=== PATIENT | female | born 1995 | race Caucasian/White ===

== ENCOUNTER → 2016-12-06 | Outpatient (CLI) | payer OTHER ==
--- NOTE | 2016-12-06 16:30 | REP ---
Clinical: Pain and cramping. Dating and viability. Technique: The transabdominal and transvaginal first trimester obstetrical ultrasound with color Doppler evaluation. Findings: Single live early intrauterine is appreciated. Gestational sac with yolk sac and pole identified. Brillion-rump length of 4 mm corresponds to 6 weeks 0 days gestational age with estimated date of delivery 08/01/2017 . heart rate equals 111 beats per minute. No gross abnormalities are identified. Impression: Single live early intrauterine at 6 weeks 0 days gestational age. Complete anatomical assessment should be performed and 19-20 weeks. Signed by Felipe Luz MD 12/06/2016 04:21 P
== END ==
LOC: M RAD 15:28
PROVIDERS: ATTEND Nurse Practitioner Women's Health
DX: O20.0 Threatened abortion (principal)

== ENCOUNTER 2017-02-20 15:43 | Emergency (ER) | payer OTHER ==
[~2017-02-20] VITALS: Ht 157.5 cm; Wt 65.0 kg
[2017-02-20] MEDS ORDERED: ZOFR20TA PO (15:58)
[2017-02-20] MEDS ORDERED: PROZ20CA11 PO (15:58)
[2017-02-20] MEDS ORDERED: PROMETHAZINE INJ 25 MG/ML VIAL (J2550) IV ONE (16:30)
[2017-02-20] MEDS ORDERED: NS 1,000 ML IV ONE (16:30)
[2017-02-20 16:52] LABS: BASO % 0.3 % (0.0-1.0); EOS # 0.4 K/mm3 (0.0-0.50); EOS % 3.8 % (0.0-3.0); LARGE UNSTAINED CELL # 0.1 K/mm3 (0.0-0.4); LARGE UNSTAINED CELL % 1.2 % (0.0-4.0); LYMPH # 1.5 K/mm3 (1.5-6.5); LYMPH % 15.2 % (24.0-44.0); MEAN CORPUSCULAR HEMOGLOBIN 32.1 pg (27.0-33.0); MEAN CORPUSCULAR HGB CONC 33.6 g/dl (32.0-36.5); MEAN CORPUSCULAR VOLUME 95.5 fl (80.0-96.0); MONO # 0.6 K/mm3 (0.0-0.8); MONO % 6.4 % (0.0-5.0); NEUTROPHILS # 7.1 K/mm3 (1.8-7.7); NEUTROPHILS % 73.1 % (36.0-66.0); PLATELET COUNT, AUTOMATED 287 k/mm3 (150-450); RED CELL DISTRIBUTION WIDTH 13.3 % (11.5-14.5); WHITE BLOOD COUNT 9.7 K/mm3 (4.0-10.0)
[2017-02-20 17:12] LABS: ALBUMIN 2.9 GM/DL (3.2-5.2); ALBUMIN/GLOBULIN RATIO 0.97 (1.00-1.93); ALKALINE PHOSPHATASE 49 U/L (45-117); ALT/SGPT 19 U/L (12-78); ANION GAP 6 MEQ/L (8-16); AST/SGOT 16 U/L (15-37); BILIRUBIN,DIRECT < 0.1 MG/DL (0.0-0.2); BILIRUBIN,TOTAL 0.2 MG/DL (0.2-1.0); BLOOD UREA NITROGEN 11 MG/DL (7-18); CALCIUM LEVEL 8.6 MG/DL (8.5-10.1); CARBON DIOXIDE LEVEL 27 MEQ/L (21-32); CHLORIDE LEVEL 107 MEQ/L (98-107); CREATININE FOR GFR 0.59 MG/DL (0.55-1.02); GLOMERULAR FILTRATION RATE > 60.0 (>60); GLUCOSE, FASTING 82 MG/DL (70-105); POTASSIUM SERUM 3.9 MEQ/L (3.5-5.1); SODIUM LEVEL 140 MEQ/L (136-145); TOTAL PROTEIN 5.9 GM/DL (6.4-8.2)
[2017-02-20] MEDS ORDERED: PROM25TA PO (17:35)
[2017-02-20 17:51] VITALS: BP 113/71
== END 2017-02-20 17:52 | disposition home or self-care (01) ==
LOC: M ED 16:56
DX: O21.0 Mild hyperemesis gravidarum (principal); Z3A.18 18 weeks gestation of pregnancy; O99.342 Other mental disorders complicating pregnancy, second trimester; F33.9 Major depressive disorder, recurrent, unspecified; Z79.899 Other long term (current) drug therapy; Z88.0 Allergy status to penicillin; Z88.5 Allergy status to narcotic agent

== ENCOUNTER → 2017-03-01 | Outpatient (CLI) | payer OTHER ==
[~2017-03-01] MED LIST: PROM25TA PO; PROZ20CA11 PO; ZOFR20TA PO
--- NOTE | 2017-03-02 04:29 | REP ---
Clinical: Anatomical evaluation. Comparison: None . Findings: Examination demonstrates a single live intrauterine in cephalic presentation. motion is identified by technologist. Placenta is noted anteriorly and grade zero without evidence for placenta previa or abruption. Amniotic fluid volume is normal. Cervix measures 4.5 cm in length and appears closed. Nuchal cord noted. Gestational age by LMP 18 weeks 2 days with BALBIR 07/31/2017 . Gestational age by current measurements 18 weeks 5 days with BALBIR 07/28/2017 . FHR equals 171 beats per minute. BPD 4.3 cm 19 weeks 0 days HC 15.7 cm 18 weeks 4 days AC 13.0 cm 18 weeks 4 days FL 3.0 cm 19 weeks 3 days HL 2.8 cm 19 weeks 1 day HC/AC ratio 1.20 Estimated weight 264 grams ( 71st percentile). Anatomical assessment demonstrates normal structures including cranium, choroid plexus, cavum, cerebellum/posterior fossa, facial features, lungs, four-chamber heart, diaphragm, stomach, cord insertion/three-vessel cord, kidneys/bladder, spine, and extremities. Impression: Single live intrauterine in cephalic presentation demonstrating appropriate interval growth. Anatomical assessment is complete and normal. Nuchal cord noted. Signed by Felipe Luz MD 03/02/2017 04:21 A
== END ==
LOC: M RAD 10:48
PROVIDERS: ATTEND Nurse Practitioner Women's Health
DX: Z36 Encounter for antenatal screening of mother (principal); Z3A.18 18 weeks gestation of pregnancy

== ENCOUNTER 2017-05-09 19:08 | Outpatient (CLI) | payer OTHER ==
[2017-05-09] MEDS ORDERED: metroNIDAZOLE (FLAGYL) 500 MG TAB PO ONE (20:30)
== END 2017-05-09 21:03 | disposition home or self-care (01) ==
LOC: M LDO 19:08
PROVIDERS: ATTEND Advanced Practice Midwife
DX: O23.593 Infection of other part of genital tract in pregnancy, third trimester (principal); Z3A.29 29 weeks gestation of pregnancy

== ENCOUNTER 2017-06-15 21:07 | Outpatient (CLI) | payer OTHER ==
[~2017-06-15] VITALS: Ht 157.5 cm; Wt 75.0 kg
[2017-06-15 21:16] VITALS: BP 122/59
[2017-06-15] MEDS ORDERED: LACTATED RINGER'S 1000 ML IV STA (21:40)
[2017-06-15] MEDS ORDERED: LR 1,000 ML IV SCH (21:40)
[2017-06-15] MEDS ORDERED: ACETAMINOPHEN 500 MG TAB PO PRN (22:45)
[2017-06-15] MEDS ORDERED: TERBUTALINE SULFATE 1 MG/ML VIAL (J3105) SC ONE (23:45)
[2017-06-15] MEDS: BETAMETHASONE SOLUSPAN 6MG/ML INJ 5ML (J0702) IM SCH (23:59)
[2017-06-16 01:34] VITALS: BP 131/65
[2017-06-16] MEDS ORDERED: PROMETHAZINE INJ 25 MG/ML VIAL (J2550) IV ONE (05:30)
[2017-06-16] MEDS ORDERED: BUTORPHANOL 2 MG/ML INJ (J0595) IV ONE (05:30)
[2017-06-16 05:59] VITALS: BP 128/66
[2017-06-16 07:57] VITALS: BP 113/54
--- NOTE | 2017-06-16 10:51 | HPE ---
DATE OF ADMISSION: 06/15/2017 HISTORY: A 22-year-old 4, para 1-0-2-1 female at 33 and 4/7 weeks gestation by last menstrual period (LMP), consistent with 10-week ultrasound, estimated date of confinement (EDC) 07/31/2017, presents with regular contractions every three minutes for the last several hours. She was sent to [facility] by her provider, Skye Medina. She had a small amount of vaginal bleeding. There is good movement. She denies recent intercourse. OBSTETRICAL HISTORY: 1. 04/2012: Vaginal delivery 6 pound 9 ounce female infant, no complications. 2. 02/2013: Spontaneous . 3. 12/2014: Spontaneous . MEDICAL HISTORY: 1. Depression. 2. Gastroesophageal reflux disease (GERD). SURGICAL HISTORY: 1. Tonsillectomy in 03/2013. 2. Cholecystectomy 04/2012. 3. Excision of lipoma 09/2011. MEDICATIONS: - omeprazole 40 mg daily - fluoxetine 20 mg daily ALLERGIES: 1. AMOXICILLIN. 2. MORPHINE. SOCIAL HISTORY: The patient is . The patient denies cigarettes, alcohol or drug use. FAMILY HISTORY: Noncontributory. PHYSICAL EXAMINATION: VITAL SIGNS: Blood pressure 124/74, pulse 84, afebrile. GENERAL: She appears uncomfortable. HEAD/NECK: Normal. LUNGS: Clear to auscultation. HEART: Regular rate and rhythm. ABDOMEN: Nontender and gravid. heart tones are category one. Contractions every 2-3 minutes. Palpate mild to moderate. STERILE VAGINAL EXAM: 1 cm, 50% effaced, -2 station. Scant amount of bloody show. EXTREMITIES: Nontender. LABORATORY DATA: Blood type O negative. Rubella immune. RPR nonreactive. Hepatitis B negative. ASSESSMENT: A 22-year-old 4 para 1 female at 33 and 47 weeks gestation with contractions, possible labor. The patient was admitted on 06/15/2017. We will observe initially. Consider betamethasone if she makes cervical change to help with lung maturity. Consider temporary tocolysis, terbutaline or nifedipine, in order to gain steroid effect.
[2017-06-16] MEDS: BETAMETHASONE SOLUSPAN 6MG/ML INJ 5ML (J0702) IM SCH (11:46)
[2017-06-16 11:54] VITALS: BP 109/58
[2017-06-17] MEDS ORDERED: PRENTAB9 PO (17:48)
== END 2017-06-16 14:10 | disposition home or self-care (01) ==
LOC: M LDO 21:07
PROVIDERS: ATTEND Specialist
DX: O62.0 Primary inadequate contractions (principal); Z3A.33 33 weeks gestation of pregnancy; O09.293 Supervision of pregnancy with other poor reproductive or obstetric history, third trimester; O99.343 Other mental disorders complicating pregnancy, third trimester; F33.9 Major depressive disorder, recurrent, unspecified; O99.613 Diseases of the digestive system complicating pregnancy, third trimester; K21.9 Gastro-esophageal reflux disease without esophagitis; Z79.899 Other long term (current) drug therapy; Z88.0 Allergy status to penicillin; Z88.5 Allergy status to narcotic agent
CPT/HCPCS: 59025; 96372; 96374; 96375; J0595; J0702; J3105

== ENCOUNTER 2017-06-17 17:34 | Outpatient (CLI) | payer OTHER ==
[~2017-06-17] VITALS: Ht 157.5 cm; Wt 76.0 kg
[2017-06-17] MEDS ORDERED: PRENTAB9 PO (17:48)
[2017-06-17 17:50] VITALS: BP 116/71
[2017-06-17 18:22] VITALS: BP 114/68
[2017-06-17] MEDS ORDERED: LACTATED RINGER'S 1000 ML IV ONE (19:00)
[2017-06-17] MEDS ORDERED: LR 1,000 ML IV SCH (19:00)
[2017-06-17 19:11] VITALS: BP 113/59
[2017-06-17] MEDS ORDERED: FLUCONAZOLE 50MG TABLET PO ONE (19:30)
[2017-06-17] MEDS ORDERED: PROMETHAZINE INJ 25 MG/ML VIAL (J2550) IV ONE (21:00)
[2017-06-17] MEDS ORDERED: BUTORPHANOL 2 MG/ML INJ (J0595) IV ONE (21:00)
[2017-06-17 21:49] LABS: BASO % 0.2 % (0.0-1.0); EOS % 0.3 % (0.0-3.0); LARGE UNSTAINED CELL # 0.2 K/mm3 (0.0-0.4); LARGE UNSTAINED CELL % 1.4 % (0.0-4.0); LYMPH % 12.2 % (24.0-44.0); MEAN CORPUSCULAR HEMOGLOBIN 29.1 pg (27.0-33.0); MEAN CORPUSCULAR HGB CONC 32.8 g/dl (32.0-36.5); MEAN CORPUSCULAR VOLUME 88.7 fl (80.0-96.0); MONO # 1.4 K/mm3 (0.0-0.8); MONO % 9.7 % (0.0-5.0); NEUTROPHILS # 10.9 K/mm3 (1.8-7.7); NEUTROPHILS % 76.3 % (36.0-66.0); PLATELET COUNT, AUTOMATED 267 k/mm3 (150-450); RED CELL DISTRIBUTION WIDTH 13.8 % (11.5-14.5); WHITE BLOOD COUNT 14.3 K/mm3 (4.0-10.0)
--- NOTE | 2017-06-17 23:37 | IPNPDOC ---
Text Note Date of Service The patient was seen on 06/17/17. NOTE Subjective: Patient is a 18-year-old female who is a at 33 weeks 5 days with an BALBIR of 07/31/2017 based off of her LMP and consistent with first second trimester ultrasound. Patient initiated care in her first trimester with Skye Medina. Her has been complicated by depression and labor contractions. Patient is taking Prozac for her depression. She is betamethasone complete as of 06/16/2017. She presents to labor and delivery with complaints of contractions that are every 2-3 minutes. She reports the contractions started at the scene 100 and over the next 2 hours progressed to a more painful and more frequent. She reports active movement. Denies leaking of fluid or vaginal bleeding. She does report having more discharge but denies vaginal irritation or vaginal itching. Obstetrical history: 05/03/2012: of a live female at 39 weeks weighing 6 lbs. 9 oz.; 02/27/2013 SAB at 7 weeks; 12/21/2014 SAB at 5 weeks gestation. Medical history: Anxiety, depression, GERD Surgical history: Tonsillectomy 2012, removal lipoma in 2010, cholecystectomy 2011 Social history: Patient denies the use of alcohol, tobacco, or illicit drug use. She denies being a smoker. Denies any STI's. Patient is and with . Family history: Noncontributory Objective: Vital signs stable. The pressure 108/55. Heart rate 82. heart rate 130, moderate variability positive accelerations, no decelerations. Contractions every 1-8 minutes. Uterine irritability noted. Palpation of contractions as very mild. SVE: 1/50/-1, anterior, no show, vertex presentation. GBS is negative. No change from previous exam on the in June 16. Assessment: IUP at 33 weeks 5 days gestation; category 1 heart rate tracing; contractions-not in active labor Plan: IV started with an IV bolus then at 1 25 mL/h. CBC done. Patient treated with Diflucan due to vaginal discharge that was consistent with candidiasis. Given Stadol and Phenergan for pain management. Patient reports that her contractions are tolerable at this point desires to be discharged from the hospital. Her exam after more than 2 hours of contractions wasn't changed and is still unchanged from 2 days ago. Saline lock to removed and patient to be discharged home with . Education done at time and symptoms of labor, access to care, kick counts, and danger signs to report. Patient is to call with her routine OB appointment with Skye Medina. Dr. Milton aware of patient department and plan of care and agrees with discharge. VS,Fishbone, I+O VS, Fishbone, I+O Laboratory Tests 06/17/17 19:24 Red Blood Count 3.24 L, Mean Corpuscular Volume 88.7, Mean Corpuscular Hemoglobin 29.1, Mean Corpuscular Hemoglobin Concent 32.8, Red Cell Distribution Width 13.8, Neutrophils (%) (Auto) 76.3 H, Lymphocytes (%) (Auto) 12.2 L, Monocytes (%) (Auto) 9.7 H, Eosinophils (%) (Auto) 0.3, Basophils (%) ( Auto) 0.2, Neutrophils # (Auto) 10.9 H, Lymphocytes # (Auto) 2.0, Monocytes # ( Auto) 1.4 H, Eosinophils # (Auto) 0.0, Basophils # (Auto) 0.0 Vital Signs Date Time Temp Pulse Resp B/P (MAP) Pulse Ox O2 Delivery O2 Flow Rate FiO2 06/17/17 21:10 18 Room Air 06/17/17 19:11 98.7 89 113/59 (77) NERY BLOCK CNM Jun 17, 2017 23:37
== END 2017-06-17 23:25 | disposition home or self-care (01) ==
LOC: M LDO 17:34
PROVIDERS: ATTEND Advanced Practice Midwife
DX: O62.0 Primary inadequate contractions (principal); O99.343 Other mental disorders complicating pregnancy, third trimester; F33.9 Major depressive disorder, recurrent, unspecified; F41.9 Anxiety disorder, unspecified; O99.613 Diseases of the digestive system complicating pregnancy, third trimester; K21.9 Gastro-esophageal reflux disease without esophagitis; Z3A.33 33 weeks gestation of pregnancy; O09.293 Supervision of pregnancy with other poor reproductive or obstetric history, third trimester
CPT/HCPCS: 59025; 85025; 96374; 96375; J0595

== ENCOUNTER 2017-07-21 03:19 | Inpatient (IN) | payer OTHER ==
[2017-07-21] VITALS (9 sets, daily range): BP systolic 113–146; BP diastolic 64–79
[~2017-07-21] VITALS: Ht 157.5 cm; Wt 84.4 kg
[~2017-07-21 03:19] MED LIST changes: +PRENTAB9 PO
[2017-07-21] MEDS ORDERED: LACTATED RINGER'S 1000 ML IV STA (05:05)
[2017-07-21 05:31] LABS: MEAN CORPUSCULAR HEMOGLOBIN 26.1 pg (27.0-33.0); MEAN CORPUSCULAR HGB CONC 31.3 g/dl (32.0-36.5); MEAN CORPUSCULAR VOLUME 83.6 fl (80.0-96.0); RED CELL DISTRIBUTION WIDTH 15.4 % (11.5-14.5); WHITE BLOOD COUNT 20.4 10^3/uL (4.0-10.0)
[2017-07-21] MEDS ORDERED: COLA100C5 PO (05:44)
[2017-07-21] MEDS ORDERED: ACET650T3 PO (05:44)
[2017-07-21] MEDS ORDERED: OMEP10CASR PO (05:44)
[2017-07-21] MEDS ORDERED: TUMS500C PO (05:44)
--- NOTE | 2017-07-21 05:54 | HPE ---
DATE OF ADMISSION: 07/21/2017 HISTORY OF PRESENT ILLNESS: Valerie is a 4, para 1-0-2-1 at 38-4/7 weeks gestation with an estimated date of confinement (EDC) of 07/31/2017, based on last period and confirmed by first trimester ultrasound. She presents to labor and delivery today with report of onset of uncomfortable contractions that started around 2300 and have progressively gotten closer and much more uncomfortable overnight. She reports some bloody show. Denies leakage of fluid. The fetus has been active. care initiated at [facility] as a late transfer in at 37+ weeks gestation. Did seek first trimester care with Skye Medina in [place], [place]. Her course has been complicated by frequent evaluation of complaints of labor and found to be in false labor multiple times. OBSTETRICAL HISTORY: April 2012, at 39 weeks gestation, she had spontaneous vaginal delivery for a live female weighing 6 pounds 9 ounces. Three Spontaneous miscarriages. OBSTETRICAL LABORATORIES: Her blood type O negative, antibody screen negative. Pap was normal. Rubella immune, VDRL nonreactive. Hepatitis B surface antigen negative, HIV negative. Gonorrhea and chlamydia negative. Hepatitis C antibody nonreactive. She did not have genetic serum screening labs performed. Her gestational diabetic screening is normal at 101, and her GBS is negative. PAST MEDICAL HISTORY: Negative. SURGERIES: 1. Tonsillectomy. 2. Cholecystectomy. 3. Lipoma removal. FAMILY HISTORY: Diabetes, heart disease and hypertension. SOCIAL HISTORY: The patient is . Her is at bedside and supportive. She reports being a nonsmoker. Denies alcohol or drug use. Denies history of sexually transmitted infections, and denies history of abuse physical, sexual and emotional. ALLERGIES: AMOXICILLIN, MORPHINE. CURRENT MEDICATIONS: Include Nexium, vitamin and Prozac. OBJECTIVE: Temperature 97.9, pulse 101, blood pressure is 118/64. She is tense and crying and writhing in the bed with her contractions. They do palpate moderate. heart rate is 155 with moderate variability. There are no 15 x15 accelarations; there are no decelerations. Contractions every 2-3 minutes. Sterile vaginal exam an hour and half after arrival: She changed from two to 4 cm dilated, 100% effaced, and minus three station. Abdomen is gravid, cephalic presentation. Estimated weight 7 pounds. ASSESSMENT: Intrauterine at 38-4/7 weeks gestation. heart rate category one, active labor. PLAN: Admit the patient to labor and delivery. Labs as ordered. Intravenous (IV) fluid bolus as the patient has requested an epidural for her labor coping. Clear liquid diet. I do anticipate continued labor progress. Will consider artificial rupture of membranes (AOM) once she is comfortable with her epidural and anticipate a normal spontaneous vaginal delivery.
[2017-07-21] MEDS ORDERED: fentaNYL 100 MCG/2 ML INJECTION (J3010) As Ordered ONE (05:58)
[2017-07-21] MEDS ORDERED: FENTANYL 2MCG/ML ROPIVACAINE 0.2% IN 0.9% NACL 200ML IVBAG As Ordered ONE (06:01)
[2017-07-21] MEDS ORDERED: OXYTOCIN 30 UNITS IN 0.9% NaCl 500ML IV BAG (J2590) As Ordered ONE (08:05)
[2017-07-21] MEDS ORDERED: OXYTOCIN DRIP 30 UNITS in APPROPRIATE DILUENT 1 EA IV SCH ×2 (08:15→08:55)
[2017-07-21 08:46] LABS: CORD GAS ABE V -4.4; CORD GAS HCO3 V 24.3 MEQ/L; CORD GAS O2 SAT V 23.9 %; CORD GAS PCO2 V 59.7 mmHg; CORD GAS PH V 7.228 UNITS; CORD GAS PO2 V 15.2 mmHg; CORD GAS SBC V 19.2 MEQ/L; CORD GAS TCO2 V 26.2 MEQ/L
[2017-07-21 08:47] LABS: CORD GAS ABE A -5.4; CORD GAS HCO3 A 26.4 MEQ/L; CORD GAS O2 SAT A < 15.0 %; CORD GAS PCO2 A 84.9 mmHg; CORD GAS PO2 A < 10.0 mmHg
[2017-07-21] MEDS ORDERED: RHOGAM 300 MCG (1500 IU) INJ (J2790) IM SCH (09:00)
[2017-07-21] MEDS ORDERED: MEASLES,MUMPS,RUBELLA VACCINE INJ (MMR-II) (90707) SC SCH (09:00)
[2017-07-21] MEDS ORDERED: DIBUCAINE 1% OINTMENT 30GM TOP PRN (09:00)
[2017-07-21] MEDS: PRENATAL VITAMINS CHEWABLE TABLET PO SCH (09:00)
[2017-07-21] MEDS ORDERED: DOCUSATE SODIUM 100 MG CAP PO PRN (09:00)
[2017-07-21] MEDS ORDERED: ANUSOL HC CREAM 30GM TOP PRN (09:00)
[2017-07-21] MEDS ORDERED: METHYLERGONOVINE MALEATE 0.2 MG TAB PO PRN (09:00)
--- NOTE | 2017-07-21 09:23 | DN ---
DATE: 07/21/2017 Valerie is a 4, para 2-0-2-2 now, who is admitted to labor and delivery in active labor. She did utilize an epidural for labor coping. She had spontaneous rupture of membranes for clear odorless fluid at 0644 hours. She did have her labor augmented with a very small amount of intravenous (IV) Pitocin. She progressed to full dilation at 0824 hours. She pushed to a normal spontaneous vaginal delivery of a live male in occiput anterior (OA) position with restitution to occiput transverse (ROT) position at 0831 hours. There was a nuchal cord times four that was reduced manually at the time of delivery. The shoulders delivered with gentle downward traction and the corpus immediately followed. The was placed on maternal abdomen. The cord was clamped times two and cut by the father of the baby. Immediately the baby was taken to the warmer for resuscitation and evaluation by nursing staff. Spontaneous expulsion of an intact placenta with three-vessel cord by Pruett mechanism was 0837 hours. Uterine hemostasis achieved with IV Pitocin rapid infusion and uterine fundal massage. Estimated blood loss 350 mL. Perineum and vagina inspected, noted have bilateral small labial abrasions, hemostatic. No need for any repair. Neonatology was called to the labor room for evaluation and decision was made to transfer the to intensive care. Cord blood and cord gases were obtained. Arterial cord gas 7.110, base excess of -5.4. Venous cord pH 7.228 with a base excess of -4.4. male, at one minute were 4, five minutes of 5. 10 minute is still pending as is in the intensive care unit (NICU). Family have decided to name their son, Ubaldo Ferris and the mom does plan to breastfeed. At this time, the weight is pending. At the close of delivery, lap counts, needle counts and instrument counts were correct and verified.
[2017-07-21] MEDS: IBUPROFEN 800 MG TAB PO PRN ×2 (10:45→20:53)
[2017-07-21] MEDS: ACETAMINOPHEN 500 MG TAB PO PRN (13:12)
[2017-07-22] MEDS: ACETAMINOPHEN 500 MG TAB PO PRN ×3 (01:28→20:29)
[2017-07-22] MEDS: IBUPROFEN 800 MG TAB PO PRN ×3 (05:52→22:21)
[2017-07-22 06:10] VITALS: BP 125/68
--- NOTE | 2017-07-22 07:18 | IPNPDOC ---
Date Seen The patient was seen on 07/22/17. Progress Note PP#1 Feels well. Pumping. Adequate pain management. Voiding VSS Breasts soft, nipples intact Fundus firm, NT, down 1 FB Lochia rubra scant without odor Perineum intact A: PP #1, in NICU P: Routine care. Enc pumping to establish milk supply. Consider discharge to rooming in tomorrow. VS, I&O, 24H, Fishbone Vital Signs/I&O Vital Signs Date Time Temp Pulse Resp B/P (MAP) Pulse Ox O2 Delivery O2 Flow Rate FiO2 07/22/17 06:10 97.9 80 18 125/68 (87) 07/21/17 22:00 98 Room Air Laboratory Data 24H LABS Laboratory Tests 2 07/21/17 08:40: Cord Arterial Blood pH 7.110, Cord Arterial Blood PCO2 84.9, Cord Arterial Blood PO2 < 10.0, Cord Arterial Blood HCO3 26.4, Cord Arterial Blood Total CO2 29.0, Cord Arterial Blood Base Excess -5.4, Cord Arterial Base Excess (Standard , Cord Arterial Bld Oxygen Saturation < 15.0, Cord Venous Blood pH 7.228, Cord Venous Blood PCO2 59.7, Cord Venous Blood PO2 15.2, Cord Venous Blood HCO3 24.3 , Cord Venous Blood Total CO2 26.2, Cord Venous Base Excess (Actual) -4.4, Cord Venous Base Excess (Standard) 19.2, Cord Venous Blood Oxygen Saturation 23.9 Prema Blum CNM Jul 22, 2017 07:18
[2017-07-22 08:00] VITALS: BP 110/54
[2017-07-22] MEDS: PRENATAL VITAMINS CHEWABLE TABLET PO SCH (09:36)
[2017-07-22 18:00] VITALS: BP 117/60
[2017-07-23] MEDS: IBUPROFEN 800 MG TAB PO PRN (05:37)
[2017-07-23 05:59] VITALS: BP 131/78
[2017-07-23] MEDS: PRENATAL VITAMINS CHEWABLE TABLET PO SCH (10:40)
[2017-07-23] MEDS: ACETAMINOPHEN 500 MG TAB PO PRN (11:57)
[2017-07-23] MEDS ORDERED: IBUP-1114 PO (12:08)
[2017-07-23] MEDS ORDERED: ACET50TA PO (12:08)
[2017-07-23] MEDS ORDERED: PRENTAB9 PO (12:08)
== END 2017-07-23 17:00 | disposition home or self-care (01) | DRG 775 ==
LOC: M LDO 03:19 → M LDI 05:02 → M OBS 12:43
PROVIDERS: ADMIT Advanced Practice Midwife; ATTEND Advanced Practice Midwife
PROC: 10E0XZZ Delivery of Products of Conception, External Approach (ICD-10-PCS; principal; 2017-07-21)
DX: O69.82X0 Labor and delivery complicated by other cord entanglement, without compression, not applicable or unspecified (principal); Z37.0 Single live birth; Z3A.38 38 weeks gestation of pregnancy; Z90.49 Acquired absence of other specified parts of digestive tract; Z88.5 Allergy status to narcotic agent; Z88.1 Allergy status to other antibiotic agents; Z79.899 Other long term (current) drug therapy

== ENCOUNTER 2017-11-24 09:00 | Emergency (ER) | payer OTHER | END 2017-11-24 10:33 | disposition home or self-care (01) | LOC: M ED 09:00 | DX: L50.0 Allergic urticaria (principal); F33.9 Major depressive disorder, recurrent, unspecified; Z79.899 Other long term (current) drug therapy; Z88.1 Allergy status to other antibiotic agents; Z88.5 Allergy status to narcotic agent | CPT/HCPCS: 87880 ==

== ENCOUNTER 2017-12-04 19:27 | Emergency (ER) | payer OTHER | END 2017-12-04 20:52 | disposition left against medical advice (07) | LOC: M ED 19:27 | DX: Z53.29 Procedure and treatment not carried out because of patient's decision for other reasons (principal) ==

== ENCOUNTER 2017-12-05 10:33 | Emergency (ER) | payer OTHER ==
[2017-12-05] MEDS: NORCO, ANEXSIA 5/325MG TABLET (HYDROcodone/ACETAMINOPHEN) PO (12:33)
== END 2017-12-05 12:38 | disposition home or self-care (01) ==
LOC: M ED 10:33
DX: S49.91XA Unspecified injury of right shoulder and upper arm, initial encounter (principal); W00.0XXA Fall on same level due to ice and snow, initial encounter; Y92.89 Other specified places as the place of occurrence of the external cause; K21.9 Gastro-esophageal reflux disease without esophagitis; F41.9 Anxiety disorder, unspecified; F33.9 Major depressive disorder, recurrent, unspecified; Z79.899 Other long term (current) drug therapy; Z88.1 Allergy status to other antibiotic agents; Z88.5 Allergy status to narcotic agent
CPT/HCPCS: 73030

== ENCOUNTER 2018-01-03 17:37 | Emergency (ER) | payer OTHER ==
[2018-01-03] MEDS: CLINDAMYCIN 150 MG CAP PO (18:30)
[2018-01-03] MEDS: PERCOCET 5MG/325MG TAB PO (18:31)
[2018-01-03] MEDS: OXYCODONE/APAP 5MG/325MG(BULK FOR ED) 1 TABLET PO (20:07)
== END 2018-01-03 20:05 | disposition home or self-care (01) ==
LOC: M ED 17:37
DX: S91.332A Puncture wound without foreign body, left foot, initial encounter (principal); W54.0XXA Bitten by dog, initial encounter; Y92.018 Other place in single-family (private) house as the place of occurrence of the external cause; K21.9 Gastro-esophageal reflux disease without esophagitis; F41.9 Anxiety disorder, unspecified; F33.9 Major depressive disorder, recurrent, unspecified; Z79.899 Other long term (current) drug therapy; Z88.0 Allergy status to penicillin; Z88.5 Allergy status to narcotic agent
CPT/HCPCS: 73630

== ENCOUNTER 2018-03-13 11:59 | Emergency (ER) | payer OTHER | END 2018-03-13 14:10 | disposition home or self-care (01) | LOC: M ED 11:59 | DX: S60.511A Abrasion of right hand, initial encounter (principal); S60.221A Contusion of right hand, initial encounter; W22.09XA Striking against other stationary object, initial encounter; Y92.008 Other place in unspecified non-institutional (private) residence as the place of occurrence of the external cause; Y93.02 Activity, running; F17.200 Nicotine dependence, unspecified, uncomplicated; Z88.0 Allergy status to penicillin; Z88.5 Allergy status to narcotic agent | CPT/HCPCS: 73130 ==

== ENCOUNTER 2018-05-04 13:33 | Day surgery (SDC) | payer OTHER ==
[2018-05-04] MEDS ORDERED: ROPIvacaine 0.5% 30 ML INJECTION (J2795 PER 1MG) (13:34)
[2018-05-04] MEDS ORDERED: dexameTHASONE 10 MG/1 ML VIAL PRES.FREE (J1100) (13:34)
[2018-05-04] MEDS ORDERED: LIDOCAINE 1% MDV 20ML VIAL (13:34)
[2018-05-04] MEDS: LR 1,000 ML IV (13:45)
[2018-05-04 14:16] LABS: CONTROL LINE UCG INT CTR LINE PRESENT; URINE PREG TEST NEGATIVE (NEGATIVE)
[2018-05-04] MEDS ORDERED: MIDAZOLAM INJ 2 MG/2 ML VIAL (J2250) As Ordered ×2 (14:22→14:33)
[2018-05-04] MEDS ORDERED: fentaNYL 100 MCG/2 ML INJECTION (J3010) As Ordered ×2 (14:22→14:33)
[2018-05-04] MEDS ORDERED: KETOROLAC 60 MG/2 ML VIAL (J1885) As Ordered (14:33)
[2018-05-04] MEDS ORDERED: dexameTHASONE 4 MG/ML 1ML VIAL (J1100) As Ordered (14:33)
[2018-05-04] MEDS ORDERED: ROCURONIUM BROMIDE 50 MG/5 ML VIAL As Ordered ×2 (14:33→17:15)
[2018-05-04] MEDS ORDERED: ONDANSETRON 4MG/2ML VIAL (J2405) As Ordered (14:33)
[2018-05-04] MEDS ORDERED: PROPOFOL 200 MG/20 ML VIAL As Ordered (14:33)
[2018-05-04] MEDS ORDERED: LIDOCAINE 2% INJ 100 MG/5 ML SDV (FOR ANES.) As Ordered (14:33)
[2018-05-04] MEDS ORDERED: GLYCOPYRROLATE INJ 0.2 MG/ML 2 ML VIAL As Ordered (14:35)
[2018-05-04] MEDS ORDERED: NEOSTIGMINE 10 MG/10 ML VIAL (J2710) As Ordered (14:35)
[2018-05-04] MEDS: fentaNYL 100 MCG/2 ML INJECTION (J3010) IV ×5 (14:52→18:38)
[2018-05-04] MEDS: MIDAZOLAM INJ 2 MG/2 ML VIAL (J2250) IV (14:52)
[2018-05-04] MEDS ORDERED: ePHEDrine SULFATE 25 MG/5 ML(5MG/ML) SYRINGE As Ordered (16:42)
[2018-05-04] MEDS: EPINEPHrine 1MG/ML INJ 30ML MD-VIAL IR (17:08)
[2018-05-04] MEDS: LIDOCAINE 1% MDV 20ML VIAL As Ordered (17:45)
[2018-05-04] MEDS ORDERED: METOCLOPRAMIDE INJ 10MG/2ML VIAL (J2765) IV (18:30)
[2018-05-04] MEDS ORDERED: LR 1,000 ML IV ×2 (18:30→19:00)
[2018-05-04] MEDS ORDERED: PROMETHAZINE INJ 25 MG/ML VIAL (J2550) IV (18:30)
[2018-05-04] MEDS: PERCOCET 5MG/325MG TAB PO ×2 (18:38→19:07)
[2018-05-04] MEDS: ONDANSETRON 4MG/2ML VIAL (J2405) IV (19:08)
== END 2018-05-04 20:38 | disposition home or self-care (01) ==
LOC: M SDC 20:38
DX: M25.311 Other instability, right shoulder (principal); K21.9 Gastro-esophageal reflux disease without esophagitis; F41.9 Anxiety disorder, unspecified; F32.9 Major depressive disorder, single episode, unspecified; Z79.899 Other long term (current) drug therapy
CPT/HCPCS: 29806

== ENCOUNTER 2018-05-09 18:24 | Emergency (ER) | payer OTHER ==
[2018-05-09] MEDS: KETOROLAC 60 MG/2 ML VIAL (J1885) IM (20:30)
[2018-05-09] MEDS: oxyCODONE 5MG TAB PO (20:41)
[2018-05-09] MEDS: HYDROMORPHONE HCL 0.5 MG/ 0.5 ML SYRINGE (J1170 PER 1) IM (20:56)
== END 2018-05-09 21:30 | disposition home or self-care (01) ==
LOC: M ED 18:24
DX: G89.18 Other acute postprocedural pain (principal); M25.511 Pain in right shoulder; K21.9 Gastro-esophageal reflux disease without esophagitis; F32.9 Major depressive disorder, single episode, unspecified; Z79.899 Other long term (current) drug therapy; Z88.0 Allergy status to penicillin; Z88.5 Allergy status to narcotic agent
CPT/HCPCS: J1170

== ENCOUNTER 2018-05-17 13:52 | Day surgery (SDC) | payer OTHER ==
[2018-05-17] MEDS ORDERED: dexameTHASONE 10 MG/1 ML VIAL PRES.FREE (J1100) (13:53)
[2018-05-17] MEDS ORDERED: EPINEPHrine INJ 1 MG/ML 1ML AMP (13:53)
[2018-05-17] MEDS ORDERED: ROPIvacaine 0.5% 30 ML INJECTION (J2795 PER 1MG) (13:53)
[2018-05-17] MEDS ORDERED: LIDOCAINE 1% MDV 20ML VIAL SQ (14:00)
[2018-05-17] MEDS ORDERED: LR 1,000 ML IV ×2 (14:00→20:15)
[2018-05-17 14:24] LABS: CONTROL LINE UCG INT CTR LINE PRESENT; URINE PREG TEST NEGATIVE (NEGATIVE)
[2018-05-17] MEDS ORDERED: fentaNYL 100 MCG/2 ML INJECTION (J3010) As Ordered (15:11)
[2018-05-17] MEDS ORDERED: MIDAZOLAM INJ 2 MG/2 ML VIAL (J2250) As Ordered ×2 (15:11→17:17)
[2018-05-17] MEDS: MIDAZOLAM INJ 2 MG/2 ML VIAL (J2250) IV ×2 (15:37→16:51)
[2018-05-17] MEDS: fentaNYL 100 MCG/2 ML INJECTION (J3010) IV (15:38)
[2018-05-17] MEDS ORDERED: fentaNYL 250 MCG/5 ML INJECTION (J3010) As Ordered (17:16)
[2018-05-17] MEDS ORDERED: ONDANSETRON 4MG/2ML VIAL (J2405) As Ordered (17:17)
[2018-05-17] MEDS ORDERED: ROCURONIUM BROMIDE 50 MG/5 ML VIAL As Ordered (17:17)
[2018-05-17] MEDS ORDERED: dexameTHASONE 4 MG/ML 1ML VIAL (J1100) As Ordered ×2 (17:17)
[2018-05-17] MEDS ORDERED: LIDOCAINE 2% INJ 100 MG/5 ML SDV (FOR ANES.) As Ordered (17:17)
[2018-05-17] MEDS ORDERED: PROPOFOL 200 MG/20 ML VIAL As Ordered (17:17)
[2018-05-17] MEDS ORDERED: ePHEDrine SULFATE 25 MG/5 ML(5MG/ML) SYRINGE As Ordered (18:22)
[2018-05-17] MEDS ORDERED: NEOSTIGMINE 10 MG/10 ML VIAL (J2710) As Ordered (18:46)
[2018-05-17] MEDS ORDERED: GLYCOPYRROLATE INJ 0.2 MG/ML 2 ML VIAL As Ordered ×2 (18:46)
[2018-05-17] MEDS: EPINEPHrine INJ 1 MG/ML 1ML AMP As Ordered (18:53)
[2018-05-17] MEDS: LIDOCAINE 1% MDV 20ML VIAL As Ordered (19:40)
[2018-05-17] MEDS ORDERED: METOCLOPRAMIDE INJ 10MG/2ML VIAL (J2765) IV (20:00)
[2018-05-17] MEDS ORDERED: METOCLOPRAMIDE INJ 10MG/2ML VIAL (J2765) As Ordered (20:02)
[2018-05-17] MEDS ORDERED: oxyCODONE 5MG TAB As Ordered (20:12)
[2018-05-17] MEDS ORDERED: ONDANSETRON 4MG/2ML VIAL (J2405) IV (20:15)
[2018-05-17] MEDS: oxyCODONE 5MG TAB PO ×2 (20:15→20:47)
[2018-05-17] MEDS ORDERED: fentaNYL 100 MCG/2 ML INJECTION (J3010) IV (20:15)
[2018-05-17] MEDS ORDERED: oxyCODONE 5MG TAB PO (20:30)
[2018-05-18] MEDS ORDERED: LR 1,000 ML IV (02:00)
== END 2018-05-17 22:10 | disposition home or self-care (01) ==
LOC: M SDC 13:52
DX: M24.811 Other specific joint derangements of right shoulder, not elsewhere classified (principal); K21.9 Gastro-esophageal reflux disease without esophagitis; F41.9 Anxiety disorder, unspecified; F32.9 Major depressive disorder, single episode, unspecified; Z79.899 Other long term (current) drug therapy; Z88.0 Allergy status to penicillin; Z88.5 Allergy status to narcotic agent
CPT/HCPCS: 29806

== ENCOUNTER 2018-06-13 12:52 | Day surgery (SDC) | payer OTHER, SELFPAY ==
[~2018-06-13 12:52] MED LIST changes: +LIDOCAINE 1% MDV 20ML VIAL SQ; -PRENTAB9 PO; -PROM25TA PO; -PROZ20CA11 PO; -ZOFR20TA PO
[2018-06-13] MEDS ORDERED: SODIUM CHLORIDE INJ ×2 (12:53)
[2018-06-13] MEDS ORDERED: dexameTHASONE 10 MG/1 ML VIAL PRES.FREE (J1100) ×2 (12:53)
[2018-06-13] MEDS ORDERED: LIDOCAINE 1% MDV 20ML VIAL ×2 (12:53)
[2018-06-13] MEDS ORDERED: ROPIvacaine 0.5% 30 ML INJECTION (J2795 PER 1MG) ×4 (12:53)
[2018-06-13] MEDS ORDERED: EPINEPHrine INJ 1 MG/ML 1ML AMP ×2 (12:53)
[2018-06-13] MEDS ORDERED: fentaNYL 100 MCG/2 ML INJECTION (J3010) As Ordered ×4 (13:35→17:53)
[2018-06-13] MEDS ORDERED: MIDAZOLAM INJ 2 MG/2 ML VIAL (J2250) As Ordered ×4 (13:35→16:06)
[2018-06-13] MEDS: LR 1,000 ML IV ×2 (13:42)
[2018-06-13] MEDS: LIDOCAINE 1% MDV 20ML VIAL As Ordered ×2 (13:57)
[2018-06-13] MEDS: MIDAZOLAM INJ 2 MG/2 ML VIAL (J2250) IV ×4 (13:58→14:00)
[2018-06-13] MEDS: fentaNYL 100 MCG/2 ML INJECTION (J3010) IV ×12 (13:58→18:13)
[2018-06-13 15:32] LABS: CONTROL LINE UCG INT CTR LINE PRESENT; URINE PREG TEST NEGATIVE (NEGATIVE)
[2018-06-13] MEDS ORDERED: ROCURONIUM BROMIDE 50 MG/5 ML VIAL As Ordered ×2 (16:06)
[2018-06-13] MEDS ORDERED: KETOROLAC 60 MG/2 ML VIAL (J1885) As Ordered ×2 (16:06)
[2018-06-13] MEDS ORDERED: ONDANSETRON 4MG/2ML VIAL (J2405) As Ordered ×2 (16:06)
[2018-06-13] MEDS ORDERED: dexameTHASONE 4 MG/ML 1ML VIAL (J1100) As Ordered ×2 (16:06)
[2018-06-13] MEDS ORDERED: GLYCOPYRROLATE INJ 0.2 MG/ML 2 ML VIAL As Ordered ×2 (16:06)
[2018-06-13] MEDS ORDERED: PROPOFOL 200 MG/20 ML VIAL As Ordered ×2 (16:06)
[2018-06-13] MEDS ORDERED: fentaNYL 250 MCG/5 ML INJECTION (J3010) As Ordered ×2 (16:06)
[2018-06-13] MEDS ORDERED: NEOSTIGMINE 10 MG/10 ML VIAL (J2710) As Ordered ×2 (16:06)
[2018-06-13] MEDS ORDERED: METOCLOPRAMIDE INJ 10MG/2ML VIAL (J2765) As Ordered ×2 (16:06)
[2018-06-13] MEDS ORDERED: LIDOCAINE 2% INJ 100 MG/5 ML SDV (FOR ANES.) As Ordered ×2 (16:06)
[2018-06-13] MEDS ORDERED: HYDROmorphone HCL 2 MG/ML 1ML VIAL (J1170) As Ordered ×2 (16:12)
[2018-06-13] MEDS: EPINEPHrine INJ 1 MG/ML 1ML AMP As Ordered ×2 (16:20)
[2018-06-13] MEDS ORDERED: LR 1,000 ML IV ×2 (18:00)
[2018-06-13] MEDS ORDERED: METOCLOPRAMIDE INJ 10MG/2ML VIAL (J2765) IV ×2 (18:00)
[2018-06-13] MEDS ORDERED: ONDANSETRON 4MG/2ML VIAL (J2405) IV ×2 (18:00)
[2018-06-13] MEDS: PERCOCET 5MG/325MG TAB PO ×2 (18:15)
== END 2018-06-13 19:30 | disposition home or self-care (01) ==
LOC: M SDC 19:30
DX: S43.491A Other sprain of right shoulder joint, initial encounter (principal); K21.9 Gastro-esophageal reflux disease without esophagitis; F41.9 Anxiety disorder, unspecified; F32.9 Major depressive disorder, single episode, unspecified; G43.909 Migraine, unspecified, not intractable, without status migrainosus; Z88.1 Allergy status to other antibiotic agents; Z88.5 Allergy status to narcotic agent; Z79.899 Other long term (current) drug therapy; W19.XXXA Unspecified fall, initial encounter; Y93.89 Activity, other specified; Y92.89 Other specified places as the place of occurrence of the external cause; Y99.8 Other external cause status
CPT/HCPCS: 29806

== ENCOUNTER → 2019-01-03 | Outpatient (CLI) | payer OTHER ==
[~2019-01-03] MED LIST changes: +ACET650T3 PO; +ALLE60TA69 PO; +BENA12.56 PO; +CLEO300C2 PO; +COLA100C5 PO; +GABA-1171 PO; +HYDR-4514 PO; +IBUP-1022 PO; +IBUP-1114 PO; +IBUP1TAB6 PO; +IBUP200C25 PO; -LIDOCAINE 1% MDV 20ML VIAL SQ; +MAPA500T2 PO; +MULT1TAB10 PO; +NAPR-885 PO; +NORCOTAB PO; +OMEP10CASR PO; +OXYC-141 PO; +OXYC-517 PO; +PERC5TAB12 PO; +PRED20TA PO; +PRENTAB9 PO; +PROM25TA12 PO; +PROZ20CA11 PO; +TIZA4CAP PO; +TRAM50TA2; +TUMS500C PO; +ZITHTAB PO; +ZOFR4TAB16 PO
[2019-01-03 19:29] LABS: BASO # 0.1 10^3/uL (0.0-0.2); BASO % 0.5 % (0.0-1.0); EOS # 0.3 10^3/uL (0.0-0.50); EOS % 2.6 % (0.0-3.0); HEMATOCRIT 42.7 % (36.0-47.0); HEMOGLOBIN 13.9 g/dl (12.0-15.5); LYMPH # 1.9 10^3/uL (1.5-6.5); LYMPH % 19.1 % (24.0-44.0); MEAN CORPUSCULAR HEMOGLOBIN 30.3 pg (27.0-33.0); MEAN CORPUSCULAR HGB CONC 32.6 g/dl (32.0-36.5); MONO # 0.8 10^3/uL (0.0-0.8); MONO % 8.1 % (0.0-5.0); NEUTROPHILS % 69.2 % (36.0-66.0); PLATELET COUNT, AUTOMATED 316 10^3/uL (150-450); RED BLOOD COUNT 4.59 10^6/uL (4.00-5.40); WHITE BLOOD COUNT 10.2 10^3/uL (4.0-10.0)
[2019-01-03 20:22] LABS: CHLAMYDIA DNA AMPLIFICATION NEGATIVE (NEGATIVE); GC DNA AMPLIFICATION NEGATIVE (NEGATIVE)
[2019-01-04 11:18] LABS: HEPATITIS C VIRUS ABY INDEX < 0.0 INDEX (<0.8); HIV 1&2 SCREEN CENTAUR NEGATIVE (NEGATIVE); RUBELLA IgG QUALITATIVE IMMUNE (IMMUNE)
== END ==
LOC: M SMT 13:36
PROVIDERS: ATTEND Obstetrics & Gynecology
DX: Z36.89 Encounter for other specified antenatal screening (principal); Z3A.09 9 weeks gestation of pregnancy

== ENCOUNTER 2019-03-10 18:34 | Emergency (ER) | payer OTHER ==
[~2019-03-10] VITALS: Ht 157.5 cm; Wt 72.5 kg
[~2019-03-10 18:34] MED LIST changes: +HYDR-3715 PO; -NORCOTAB PO
[2019-03-10] MEDS ORDERED: ACETAMINOPHEN TAB 650MG DOSE (2X325MG) PO ONE (19:15)
[2019-03-10] MEDS ORDERED: ONDANSETRON 4MG/2ML VIAL (J2405) IV ONE (19:15)
[2019-03-10 19:32] LABS: BASO % 0.4 % (0.0-1.0); EOS # 0.3 10^3/uL (0.0-0.50); HEMATOCRIT 31.6 % (36.0-47.0); HEMOGLOBIN 10.3 g/dl (12.0-15.5); LYMPH # 1.9 10^3/uL (1.5-6.5); LYMPH % 17.7 % (24.0-44.0); MEAN CORPUSCULAR HEMOGLOBIN 29.7 pg (27.0-33.0); MEAN CORPUSCULAR HGB CONC 32.6 g/dl (32.0-36.5); MEAN CORPUSCULAR VOLUME 91.1 fl (80.0-96.0); MONO % 8.9 % (0.0-5.0); NEUTROPHILS # 7.5 10^3/uL (1.8-7.7); NEUTROPHILS % 69.8 % (36.0-66.0); PLATELET COUNT, AUTOMATED 277 10^3/uL (150-450); RED BLOOD COUNT 3.47 10^6/uL (4.00-5.40); WHITE BLOOD COUNT 10.7 10^3/uL (4.0-10.0)
[2019-03-10 19:51] LABS: BLOOD UREA NITROGEN 7 MG/DL (7-18); CALCIUM LEVEL 8.3 MG/DL (8.5-10.1); CARBON DIOXIDE LEVEL 25 MEQ/L (21-32); CHLORIDE LEVEL 107 MEQ/L (98-107); CREATININE FOR GFR 0.49 MG/DL (0.55-1.30); GLOMERULAR FILTRATION RATE > 60.0 (>60); GLUCOSE, FASTING 90 MG/DL (70-100); POTASSIUM SERUM 3.7 MEQ/L (3.5-5.1); SODIUM LEVEL 140 MEQ/L (136-145)
[2019-03-10] MEDS ORDERED: MACR100C43 PO (21:06)
--- NOTE | 2019-03-10 21:13 | REPVR ---
EXAM: US First Trimester, Transabdominal EXAM DATE/TIME: 03/10/2019 7:53 PM CLINICAL HISTORY: 24 years old, female; Signs and symptoms; Lmp or gestational age (in weeks): Lmp 10/26/18; Antepartum complications; Bleeding and other: Cramping; ; Additional info: Vaginal bleeding TECHNIQUE: Imaging protocol: Real-time transabdominal obstetrical ultrasound of the maternal pelvis and a first trimester , less than 14 weeks 0 days, with image documentation. COMPARISON: US OBS SINGEL GEST 03/01/2017 11:17 AM FINDINGS: GESTATION: Gestation: Single, live gestation in breech position. Bilateral pelviectasis is present (0.4 to millimeters and 0.36 mm). Followup ultrasound imaging is recommended. Heart rate: heart rate 139 beats per minute. Presentation: position: Breech. Placenta: Unremarkable. No subchorionic bleed. Amniotic fluid: Amniotic and chorionic fluid are normal for gestational age. Spine: The spine is not adequately visualized secondary to positioning. BIOMETRY: Estimated gestational age: Estimated gestational age by ultrasound 19 weeks, 0 days. Estimated due date: Estimated date of delivery by ultrasound, 08/04/2019. Estimated weight: Estimated weight 261 g (23rd percentile. Hadlock). Biparietal diameter: Biparietal diameter 4.47 cm. Head circumference: Head circumference 15.96 cm. Abdominal circumference: Abdominal circumference 13.81 cm. Humerus length: Humerus length 2.77 cm. Femur length: Femur length 2.75 cm. MATERNAL: Uterus: Unremarkable. Cervix: Unremarkable. Right adnexa: Unremarkable. Left adnexa: Unremarkable. Intraperitoneal: No intraperitoneal free fluid. IMPRESSION: 1. Single live intrauterine fetus with a gestational age of 19 weeks, 0 days and heart rate 139 beats per minute. 2. Bilateral renal pelviectasis. Followup ultrasound is recommended. 3. A complete anomaly screen was not performed. Note should be made that ultrasound cannot accurately determine all anomalies. Electronically signed by: Yon Kathleen On 03/10/2019 21:13:01 PM
[2019-03-10] MEDS ORDERED: NITROFURANTOIN (MACROBID) 100 MG CAP PO ONE (21:15)
[2019-03-10 21:31] VITALS: BP 126/61
== END 2019-03-10 21:32 | disposition home or self-care (01) ==
LOC: M ED 18:34
DX: N30.90 Cystitis, unspecified without hematuria (principal); O99.342 Other mental disorders complicating pregnancy, second trimester; F33.9 Major depressive disorder, recurrent, unspecified; Z79.899 Other long term (current) drug therapy; Z88.0 Allergy status to penicillin; Z88.5 Allergy status to narcotic agent; Z3A.19 19 weeks gestation of pregnancy
CPT/HCPCS: 76811; 80048; 81001; 85025; 86850; 86900; 86901; 87086; 96374; 99284; J2405

== ENCOUNTER → 2019-03-13 | Outpatient (CLI) | payer OTHER ==
[~2019-03-13] MED LIST changes: +MACR100C43 PO
[2019-03-13 14:09] LABS: HEMATOCRIT 34.8 % (36.0-47.0); HEMOGLOBIN 11.3 g/dl (12.0-15.5); MEAN CORPUSCULAR HEMOGLOBIN 30.4 pg (27.0-33.0); MEAN CORPUSCULAR HGB CONC 32.5 g/dl (32.0-36.5); MEAN CORPUSCULAR VOLUME 93.5 fl (80.0-96.0); PLATELET COUNT, AUTOMATED 275 10^3/uL (150-450); RED BLOOD COUNT 3.72 10^6/uL (4.00-5.40); WHITE BLOOD COUNT 8.9 10^3/uL (4.0-10.0)
[2019-03-13 14:32] LABS: ALBUMIN 2.8 GM/DL (3.2-5.2); BLOOD UREA NITROGEN 7 MG/DL (7-18); CALCIUM LEVEL 8.3 MG/DL (8.5-10.1); CARBON DIOXIDE LEVEL 25 MEQ/L (21-32); CHLORIDE LEVEL 106 MEQ/L (98-107); CREATININE FOR GFR 0.53 MG/DL (0.55-1.30); GLOMERULAR FILTRATION RATE > 60.0 (>60); GLUCOSE, FASTING 77 MG/DL (70-100); PHOSPHORUS LEVEL 3.1 MG/DL (2.5-4.9); POTASSIUM SERUM 3.8 MEQ/L (3.5-5.1); SODIUM LEVEL 138 MEQ/L (136-145)
--- NOTE | 2019-03-13 14:45 | REP ---
Clinical: History of urinary calculi. Technique: Real time brunson scale and color evaluation using curved array transducer. Findings: The kidneys are essentially normal in contour size and echogenicity and reniform shape without hydronephrosis, nephrolithiasis, cystic or renal mass lesion. Right kidney measures 10.7 x 4.2 x 3.9 cm . Left kidney measures 10.0 x 5.1 x 6.2 cm . Bladder is incompletely distended and grossly normal by current evaluation. Bilateral ureteral jets noted within the bladder. Intrauterine identified. heart rate equals 160 beats per minute. Impression: Normal appearance the bilateral kidneys without nephrolithiasis or hydronephrosis. Electronically Signed by Felipe Luz MD 03/13/2019 02:37 P
== END ==
LOC: M LAB 13:43
PROVIDERS: ATTEND Advanced Practice Midwife
DX: Z34.82 Encounter for supervision of other normal pregnancy, second trimester (principal); Z3A.00 Weeks of gestation of pregnancy not specified

== ENCOUNTER → 2019-03-15 | Outpatient (CLI) | payer OTHER ==
--- NOTE | 2019-03-15 09:54 | REP ---
Clinical: Anatomical evaluation. Comparison: None . Findings: Examination demonstrates a single live intrauterine in cephalic presentation. motion is identified by technologist. Placenta is noted anterofundally and grade zero without evidence for placenta previa or abruption. Amniotic fluid volume is normal. Cervix measures 4.0 cm in length and appears closed. No evidence for nuchal cord. Gestational age by LMP 20 weeks 0 days with BALBIR 08/02/2019 . Gestational age by current measurements 19 weeks 5 days with BALBIR 08/04/2019 . FHR equals 146 beats per minute. BPD 4.7 cm 20 weeks 1 day HC 16.7 cm 19 weeks 2 days AC 14.5 cm 19 weeks 6 days FL 3.1 cm 19 weeks 5 days HL 2.9 cm 19 weeks 2 days HC/AC ratio 1.15 Estimated weight 310 grams ( 38 percentile). Anatomical assessment demonstrates normal structures including cranium, choroid plexus, cavum, cerebellum/posterior fossa, facial features, lungs, four-chamber heart/ventricular outflow tracts, diaphragm, stomach, cord insertion/three-vessel cord, kidneys/bladder, spine, and extremities. Impression: Single live intrauterine in cephalic presentation demonstrating appropriate interval growth. No gross abnormalities are identified. Electronically Signed by Felipe Luz MD 03/15/2019 09:45 A
== END ==
LOC: M RAD 08:51
PROVIDERS: ATTEND Advanced Practice Midwife
DX: Z34.82 Encounter for supervision of other normal pregnancy, second trimester (principal); Z3A.19 19 weeks gestation of pregnancy

== ENCOUNTER → 2019-05-10 | Outpatient (CLI) | payer OTHER ==
[~2019-05-10] MED LIST changes: +OMEP40CA2 PO
[2019-05-10 17:50] LABS: HEMATOCRIT 29.7 % (36.0-47.0); HEMOGLOBIN 9.2 g/dl (12.0-15.5); MEAN CORPUSCULAR HEMOGLOBIN 27.5 pg (27.0-33.0); MEAN CORPUSCULAR VOLUME 88.7 fl (80.0-96.0); PLATELET COUNT, AUTOMATED 319 10^3/uL (150-450); RED BLOOD COUNT 3.35 10^6/uL (4.00-5.40); WHITE BLOOD COUNT 10.7 10^3/uL (4.0-10.0)
[2019-05-10 18:15] LABS: ALBUMIN 2.2 GM/DL (3.2-5.2); ALT/SGPT 9 U/L (12-78); BILIRUBIN,DIRECT < 0.1 MG/DL (0.0-0.2); BILIRUBIN,TOTAL 0.2 MG/DL (0.2-1.0); GLUCOSE CHALLENGE TEST 1 HOUR 110 MG/DL (LESS THAN 140); TOTAL PROTEIN 5.7 GM/DL (6.4-8.2)
== END ==
LOC: M SMT 14:48
PROVIDERS: ATTEND Advanced Practice Midwife
DX: Z34.82 Encounter for supervision of other normal pregnancy, second trimester (principal); Z3A.00 Weeks of gestation of pregnancy not specified; L29.9 Pruritus, unspecified
CPT/HCPCS: 80076; 82239; 82950; 85027; 86850; J2790

== ENCOUNTER 2019-05-15 16:22 | Outpatient (CLI) | payer OTHER ==
[~2019-05-15] VITALS: Ht 157.5 cm; Wt 72.2 kg
[~2019-05-15 16:22] MED LIST changes: -OMEP40CA2 PO
[2019-05-15 16:35] VITALS: BP 118/71
[2019-05-15] MEDS ORDERED: OMEP40CA2 PO (16:37)
--- NOTE | 2019-05-15 17:24 | IPN ---
DATE: 05/15/2019 Valerie is a 24-year-old 5, para 2-0-2-2 at 28-1/7 weeks gestation, estimated date of confinement (EDC) of 08/06/2019 based on last menstrual period and confirmed by first trimester ultrasound who presents to labor and delivery today with multiple complaints including contractions every eight minutes, chest heaviness, headache, shortness of breath, and just overall feeling fatigued. She denies vaginal bleeding and leakage of fluid. The fetus has been active. care was initiated at [facility] in the first trimester. course complicated by anemia just recently diagnosed. She just started prescription for by mouth iron. OBSTETRICAL HISTORY: April 2012 at 39 weeks, 6-pound, 9-ounce female vaginal delivery. February 2013 miscarriage. December 2014 miscarriage. June 2017 at 38-4/7 weeks, 6-pound, 9-ounce male spontaneous vaginal delivery. OBSTETRIC LABORATORY DATA: O negative, antibody screen negative, rubella immune, VDRL nonreactive. Urine culture no growth. Hepatitis B surface antigen negative, HIV negative. Hepatitis C antibody nonreactive. Gonorrhea and Chlamydia negative. She did not have genetic serum screening laboratories performed. Gestational diabetic screening normal at 110 and her GBS is unknown. She has been tested for a complaint of pruritus of the abdomen and her bile acids were 5.0. PAST MEDICAL HISTORY: Noncontributory. PAST SURGICAL HISTORY: Tonsillectomy, cholecystectomy, lipoma. FAMILY HISTORY: Diabetes, heart disease, hypertension. SOCIAL HISTORY: The patient is . Her is an active-duty soldier. She is a nonsmoker. Denies alcohol and drug use. No history of any sexually transmitted infections and denies history of abuse, physical, sexual and emotional. ALLERGIES: AMOXICILLIN and MORPHINE. CURRENT MEDICATIONS: Ferrous gluconate, stool softener, Nexium, vitamin, Prozac and BuSpar. OBJECTIVE: Vital signs are stable. Her temperature is 98.5, pulse 99, respirations 18, blood pressure is 118/71. She is alert and oriented times three. She does appear pale. Her skin is pink, warm and dry. heart rate is 150, appropriate for gestational age. No pattern of contractions. STERILE SPECULUM EXAMINATION: Her cervix is visually long, thick and closed. STERILE VAGINAL EXAMINATION: Long, thick and closed. No bleeding. Normal physiological discharge. ASSESSMENT: Intrauterine at 28-1/7 weeks, heart rate appropriate for gestational age, anemia. Hemoglobin 9.2. PLAN: Reviewed dietary measures to increase her iron intake. Advised to be certain to take her iron as directed. Did review signs and symptoms of labor, kick count, and access to care. The patient agrees with plan and she will be discharged to home.
== END 2019-05-15 17:10 | disposition home or self-care (01) ==
LOC: M LDO 16:22
PROVIDERS: ATTEND Advanced Practice Midwife
DX: O99.012 Anemia complicating pregnancy, second trimester (principal); Z3A.28 28 weeks gestation of pregnancy; Z88.0 Allergy status to penicillin; Z88.5 Allergy status to narcotic agent; Z79.899 Other long term (current) drug therapy
CPT/HCPCS: G0378; G0463